=== PATIENT | female | born 1970 | race American Indian/Alaskan Native ===

== ENCOUNTER 2021-04-12 19:44 | Emergency (ER) | payer OTHER ==
[2021-04-12 22:30] VITALS: BP 146/99
--- NOTE | 2021-04-12 22:34 | Event Note ---
ED Screening Note Date of service: 04/12/21 Time: 22:34 ED Screening Note: 50-year-old -[place] female presents to the emergency room for 3-day history of cough dizziness and decreased appetite. Patient reports that she was vaccinated on Monday. This initial assessment/diagnostic orders/clinical plan/treatment(s) is/are subject to change based on patients health status, clinical progression and re- assessment by fellow clinical providers in the ED. Further treatment and workup at subsequent clinical providers discretion. Patient/guardian urged not to elope from the ED as their condition may be serious if not clinically assessed and managed. Initial orders include:
--- NOTE | 2021-04-12 23:00 | XRay Report ---
CHEST 2 VIEWS INDICATION / CLINICAL INFORMATION: cough, chest congestion. COMPARISON: None available. FINDINGS: SUPPORT DEVICES: None. HEART / MEDIASTINUM: No significant abnormality. LUNGS / PLEURA: No significant pulmonary or pleural abnormality. No pneumothorax. ADDITIONAL FINDINGS: No significant additional findings. IMPRESSION: 1. No acute findings. Signer Name: Vishal Jones MD Signed: 04/12/2021 10:55 PM Workstation Name: [id number]
[2021-04-12 23:19] LABS: Basophils # (Auto) 0.1 K/mm3 (0.0-0.1); Lymphocytes # (Auto) 2.4 K/mm3 (1.2-5.4); Lymphocytes % (Auto) 36.1 % (13.4-35.0); Mean Corpuscular HGB Conc 36 % (30-34); Mean Corpuscular Volume 91 fl (79-97); Monocytes # (Auto) 0.7 K/mm3 (0.0-0.8); Monocytes % (Auto) 10.3 % (0.0-7.3); Platelet Count 209 K/mm3 (140-440); Red Cell Distribution Width 13.7 % (13.2-15.2)
[2021-04-12 23:26] LABS: Hematocrit 45.7 % (30.3-42.9); Hemoglobin 16.4 gm/dl (10.1-14.3)
[2021-04-12 23:38] LABS: Alanine Aminotransferase 13 units/L (7-56); Albumin 4.7 g/dL (3.9-5); BUN/Creatinine Ratio 16; Blood Urea Nitrogen 13 mg/dL (7-17); Calcium 9.2 mg/dL (8.4-10.2); Hemolysis Index 3
== END 2021-04-13 05:25 | disposition left against medical advice (07) ==
LOC: ED 19:44
DX: B70.0 Diphyllobothriasis (principal); Z53.21 Procedure and treatment not carried out due to patient leaving prior to being seen by health care provider
CPT/HCPCS: 36415; 71046; 80053; 85025